=== PATIENT | male | born 1955 | race Hispanic/Latino ===

== ENCOUNTER 2021-09-13 16:01 | Outpatient (CLI) | payer OTHER | END 2021-09-13 16:02 | disposition home or self-care (01) | LOC: NAV RAD 16:01 | PROVIDERS: ATTEND Family Medicine | DX: M54.50 Low back pain, unspecified (principal); M47.816 Spondylosis without myelopathy or radiculopathy, lumbar region | CPT/HCPCS: 72100 ==

== ENCOUNTER 2022-12-11 11:27 | Outpatient (CLI) | payer OTHER | END 2022-12-11 11:28 | disposition home or self-care (01) | LOC: NAV RAD 11:27 | PROVIDERS: ATTEND Family Medicine | DX: M25.619 Stiffness of unspecified shoulder, not elsewhere classified (principal) ==